=== PATIENT | male | born 1965 | race Caucasian/White ===

== ENCOUNTER 2016-11-27 17:02 | Inpatient (IN) | payer OTHER ==
[~2016-11-27] VITALS: Ht 180.3 cm; Wt 72.7 kg
[~2016-11-27 17:02] MED LIST: LORT5TAB PO; PENI500T PO; Z.0.NO CURRENT MEDS
[2016-11-27 17:06] VITALS: BP 136/87; PULSE 84; RESP 16; TEMP 100.3; O2SAT 97
--- NOTE | 2016-11-27 17:21 | PD ---
HPI Chief Complaint: ENT Complaint Time Seen by Provider: 17:21 Travel History International Travel<30 days: No Contact w/Intl Traveler<30days: No Traveled to known affect area: No History of Present Illness HPI 51-year-old male presents to the ED for evaluation of 3 day history of right- sided throat pain. Sudden onset. Patient endorses fevers, chills, difficulties swallowing his own secretions, pain radiating into the right ear. He denies headache, dizziness, difficulties breathing, abdominal pain, nausea or vomiting. He endorses several dental caries on the right side but denies any dental pain. He's been treating with Tylenol with no improvement of his symptoms. [facility] Social History Alcohol Use: Yes (12 CANS DAILY) Tobacco Use: Yes (1 1/2PPD) Substance Use: Yes (MARIJUANA OCCASIONALLY) Allergies-Medications (Allergen,Severity, Reaction): Coded Allergies: No Known Allergies (Verified , 11/27/16) Reported Meds & Prescriptions Reported Meds & Active Scripts Active No Active Prescriptions or Reported Medications Physical Exam Narrative GENERAL: Well-nourished, well-developed nontoxic appearing white male in no acute distress. SKIN: Focused skin assessment warm/dry. HEAD: Normocephalic. EYES: No scleral icterus. No injection or drainage. DENTAL: No loose teeth. No malocclusion. Multiple dental caries without tenderness to palpation or signs of active infection. ENT: Pearly lawrence tympanic membranes without loss of landmarks bilaterally. Mucosa moist. Oropharynx with right-sided deep erythema, edema. Uvular deviation to the left. For the mouth is soft. Airway patent. NECK: Supple, trachea midline. No JVD or lymphadenopathy. CARDIOVASCULAR: Regular rate and rhythm without murmurs, gallops, or rubs. RESPIRATORY: Breath sounds clear and equal bilaterally. No accessory muscle use. GASTROINTESTINAL: Abdomen soft, non-tender, nondistended. Active bowel sounds. MUSCULOSKELETAL: No cyanosis, or edema. Patient is noted to walk with a normal gait. BACK: Nontender without obvious deformity. No CVA tenderness. Data Data Last Documented VS Vital Signs Date Time Temp Pulse Resp B/P Pulse Ox O2 Delivery O2 Flow Rate FiO2 11/27/16 17:06 100.3 84 16 136/87 97 Orders Basic Metabolic Panel (Bmp) (11/27/16 17:18) Complete Blood Count With Diff (11/27/16 17:18) Blood Culture (11/27/16 17:18) Group A Rapid Strep Screen (11/27/16 17:18) Ct Soft Tiss Neck W Iv Cont (11/27/16 17:18) Iv Access Insert/Monitor (11/27/16 17:18) Dexamethasone Inj (Decadron Inj) (11/27/16 17:30) Clindamycin Inj (Cleocin Inj) (11/27/16 17:30) Sodium Chloride 0.9% Flush (Ns Flush) (11/27/16 17:30) Acetaminophen Inj (Ofirmev Inj) (11/27/16 17:30) Sodium Chlor 0.9% 1000 Ml Inj (Ns 1000 M (11/27/16 18:00) Iohexol 350 Inj (Omnipaque 350 Inj) (11/27/16 17:55) Ketorolac Inj (Toradol Inj) (11/27/16 18:15) Sodium Chlor 0.9% 1000 Ml Inj (Ns 1000 M (11/27/16 18:15) Strep Culture (Group A) (11/27/16 17:15) Admit Order (Ed Use Only) (11/27/16 19:14) Labs Laboratory Tests Test 11/27/16 17:10 White Blood Count 18.9 TH/MM3 Red Blood Count 4.64 MIL/MM3 Hemoglobin 14.8 GM/DL Hematocrit 44.3 % Mean Corpuscular Volume 95.5 FL Mean Corpuscular Hemoglobin 31.9 PG Mean Corpuscular Hemoglobin 33.5 % Concent Red Cell Distribution Width 11.6 % Platelet Count 329 TH/MM3 Mean Platelet Volume 7.4 FL Neutrophils (%) (Auto) 72.8 % Lymphocytes (%) (Auto) 10.6 % Monocytes (%) (Auto) 11.4 % Eosinophils (%) (Auto) 0.4 % Basophils (%) (Auto) 4.8 % Neutrophils # (Auto) 13.7 TH/MM3 Lymphocytes # (Auto) 2.0 TH/MM3 Monocytes # (Auto) 2.2 TH/MM3 Eosinophils # (Auto) 0.1 TH/MM3 Basophils # (Auto) 0.9 TH/MM3 CBC Comment AUTO DIFF Differential Total Cells 100 Counted Neutrophils % (Manual) 80 % Band Neutrophils % 7 % Lymphocytes % 7 % Monocytes % 5 % Neutrophils # (Manual) 16.6 TH/MM3 Metamyelocytes 1 % Differential Comment FINAL DIFF MANUAL Platelet Estimate NORMAL Platelet Morphology Comment NORMAL Red Cell Morphology Comment NORMAL Sodium Level 138 MEQ/L Potassium Level 3.6 MEQ/L Chloride Level 102 MEQ/L Carbon Dioxide Level 25.5 MEQ/L Anion Gap 11 MEQ/L Blood Urea Nitrogen 11 MG/DL Creatinine 0.74 MG/DL Estimat Glomerular Filtration 111 ML/MIN Rate Random Glucose 109 MG/DL Calcium Level 9.3 MG/DL [facility] Medical Decision Making Medical Screen Exam Complete: Yes Emergency Medical Condition: Yes Differential Diagnosis peritonsillar cellulitis versus peritonsillar abscess versus deep neck space infection versus retropharyngeal cellulitis versus Narrative Course 51-year-old male presents to the ED for evaluation of 3 day history of right- sided throat pain. Sudden onset. Patient endorses fevers, chills, difficulties swallowing his own secretions, pain radiating into the right ear. He denies headache, dizziness, difficulties breathing, abdominal pain, nausea or vomiting. He endorses several dental caries on the right side but denies any dental pain. Vitals reviewed. Patient is febrile, 100.3 on presentation. Physical exam reveals a nontoxic appearing white male in no acute distress. Multiple dental caries without tenderness to palpation or signs of active infection. Oropharynx with right-sided deep erythema, edema. Uvular deviation to the left. Floor the mouth is soft. Airway patent. Neck is supple. No lymphadenopathy. IV was established. Blood cultures were obtained. Patient was administered IV clindamycin, IV Decadron, IV acetaminophen, liter of normal saline. CBC reveals a leukocytosis of 18.9 with a left shift. CMP unremarkable. Rapid strep swab negative. Culture pending. CT reveals extensive masslike enlargement and swelling of the soft tissues in the posterior right oropharyngeal airway and extending into the hypopharynx. An area of low attenuation in the parapharyngeal space measures up to 2.7 x 2.1 cm. Findings most characteristic of a parapharyngeal tonsillar abscess. Cannot exclude neoplasm. Periapical abscesses around mandibular molars bilaterally. Mild enlarged right sided retromandibular lymph node. Findings per radiology read. Call placed to Dr. Ashley. He requested that the patient be admitted to the hospitalist, receive Rocephin 2 g twice a day. He requests Lortab elixir for pain. He requests that the patient NOT be administered Lovenox or Toradol considering that the patient may have surgery. Call placed to [facility]. I spoke with Dr. Cee who agrees to accept the patient to the medical service. Please see medicine and ENT notes for disposition. Sepsis Criteria SIRS Criteria (2 or more): WBC > 94713, < 4000 or > 10% bands Diagnosis Primary Impression: Peritonsillar abscess Scripts No Active Prescriptions or Reported Meds Christi Perdue Nov 27, 2016 17:21
[2016-11-27] MEDS ORDERED: SODIUM CHLORIDE 0.9% FLUSH 10 ML FLUSH IVF PRN (17:30)
[2016-11-27] MEDS ORDERED: CLINDAMYCIN INJ 900 MG in SODIUM CHLORIDE 0.9% INJ 100 ML IV ONE (17:30)
[2016-11-27] MEDS ORDERED: ACETAMINOPHEN 1000 MG/100 ML VIAL IV ONE (17:30)
[2016-11-27] MEDS ORDERED: DEXAMETHASONE SOD PHOS 4 MG/ML VIAL IV ONE (17:30)
[2016-11-27 17:40] LABS: AUTOMATED NEUTROPHIL # 13.7 TH/MM3 (1.8-7.7); BASOPHIL # 0.9 TH/MM3 (0-0.2); BASOPHIL % 4.8 % (0.0-2.0); EOSINOPHIL # 0.1 TH/MM3 (0-0.4); EOSINOPHIL % 0.4 % (0.0-4.0); HEMATOCRIT 44.3 % (39.0-51.0); LYMPH % 10.6 % (9.0-44.0); MEAN CELL VOLUME 95.5 FL (80.0-100.0); MEAN CORPUSCULAR HEMOGLOBIN 31.9 PG (27.0-34.0); MEAN CORPUSCULAR HGB CONC 33.5 % (32.0-36.0); MONO % 11.4 % (0.0-8.0); NEUT % 72.8 % (16.0-70.0); PLATELET COUNT 329 TH/MM3 (150-450); RED BLOOD COUNT 4.64 MIL/MM3 (4.50-5.90); RED CELL DISTRIBUTION WIDTH 11.6 % (11.6-17.2); WHITE BLOOD COUNT 18.9 TH/MM3 (4.0-11.0)
[2016-11-27 17:48] LABS: POTASSIUM 3.6 MEQ/L (3.5-5.1)
[2016-11-27 17:51] LABS: BICARBONATE 25.5 MEQ/L (21.0-32.0)
[2016-11-27 17:53] LABS: HEMO FLAGS AUTO DIFF
[2016-11-27] MEDS ORDERED: IOHEXOL 350 MG/ML 10 ML VIAL (for RAD DIAG) IV ONE (17:55)
[2016-11-27] MEDS ORDERED: SODIUM CHLOR 0.9% 1000 ML INJ 1,000 ML IV ONE ×2 (18:00→18:15)
[2016-11-27 18:15] LABS: BANDS 7 % (0-6); METAMYELOCYTES 1 % (0-1); NEUTROPHIL # MANUAL DIFF 16.6 TH/MM3 (1.8-7.7); POLYS (SEG NEUTROPHILS) 80 % (16-70); WBC DIFF SAMPLE 100
[2016-11-27] MEDS ORDERED: KETOROLAC TROMETHAMINE 30 MG/ML (IVP) VIAL IV PUSH ONE (18:15)
[2016-11-27 18:16] LABS: PLATELET ESTIMATE SMEAR NORMAL (NORMAL); PLATELET MORPHOLOGY NORMAL (NORMAL); SCAN/DIFF FINAL DIFF MANUAL
--- NOTE | 2016-11-27 18:21 | RADHPO ---
EXAM DATE/TIME: 11/27/2016 17:35 [place] COMPARISON: No previous studies available for comparison. INDICATIONS : Right sided neck swelling with sore throat and uvular deviation. IV CONTRAST: 75 cc Omnipaque 350 (iohexol) IV RADIATION DOSE: 12.18 CTDIvol (mGy) MEDICAL HISTORY : None SURGICAL HISTORY : None. ENCOUNTER: Initial ACUITY: 3 days PAIN SCALE: 7/10 LOCATION: Right neck TECHNIQUE: Volumetric scanning of the neck was performed. Using automated exposure control and adjustment of th e mA and/or kV according to patient size, radiation dose was kept as low as reasonably achievable to obtain optimal diagnostic quality images. FINDINGS: There is masslike enlargement and swelling in the posterior right oropharynx extending into the hypop harynx. Soft tissue swelling extends to the level of the glottis with partial effacement of the poste rior oropharyngeal and hypopharyngeal airway. There is some deviation of the epiglottis to the left a nd partial effacement of the vallecula. Within the masslike enlargement there is an area of low atten uation measuring up to 2.7 x 2.1 cm. This could represent an area of necrosis or abscess. There is a mildly prominent right retromandibular lymph node measuring up to about 1.3 cm. Submandibu lar lymph nodes are seen but not pathologically enlarged. Lung apices are clear. There is periapical lucency around the mandibular molars bilaterally suggestive of periapical abscess. CONCLUSION: 1. Extensive masslike enlargement and swelling of the soft tissues in the posterior right oropharynge al airway and extending into the hypopharynx. An area of low attenuation in the parapharyngeal space measures up to 2.7 x 2.1 cm. Finding most characteristic of a parapharyngeal/tonsillar abscess. Canno t exclude neoplasm. 2. Periapical abscesses around mandibular molars bilaterally. 3. Mildly enlarged right sided retromandibular lymph node. Cesar Beard MD on November 27, 2016 at 18:11 Board Certified Radiologist. This report was verified electronically.
[2016-11-27] MEDS ORDERED: ACETAMINOPHEN 325 MG/10.15 ML UDC PO PRN (19:15)
[2016-11-27] MEDS ORDERED: ONDANSETRON HCL 4 MG/2 ML VIAL IV PUSH PRN (19:15)
[2016-11-27 19:34] VITALS: BP 131/67; PULSE 86; RESP 20; O2SAT 97
[2016-11-27 20:50] VITALS: BP 129/79; PULSE 72; RESP 18; TEMP 98; O2SAT 96
[2016-11-27] MEDS: SODIUM CHLOR 0.9% 1000 ML INJ 1,000 ML IV SCH (21:15)
[2016-11-27] MEDS: AMPICILLIN-SULBACTAM INJ 3 GM in SODIUM CHLORIDE 0.9% INJ 100 ML IV SCH (22:29)
[2016-11-28] VITALS: BP 128/83; PULSE 67; RESP 18; TEMP 97.6; O2SAT 97
[2016-11-28] MEDS: AMPICILLIN-SULBACTAM INJ 3 GM in SODIUM CHLORIDE 0.9% INJ 100 ML IV SCH ×4 (02:16→21:56)
[2016-11-28] MEDS: SODIUM CHLOR 0.9% 1000 ML INJ 1,000 ML IV SCH ×2 (05:15→21:59)
[2016-11-28 06:27] LABS: AUTOMATED NEUTROPHIL # 10.7 TH/MM3 (1.8-7.7); BASOPHIL # 0.4 TH/MM3 (0-0.2); BASOPHIL % 2.9 % (0.0-2.0); EOSINOPHIL % 0.1 % (0.0-4.0); HEMATOCRIT 40.7 % (39.0-51.0); LYMPH % 8.9 % (9.0-44.0); LYMPHOCYTE # 1.2 TH/MM3 (1.0-4.8); MEAN CELL VOLUME 95.1 FL (80.0-100.0); MEAN CORPUSCULAR HEMOGLOBIN 32.1 PG (27.0-34.0); MEAN CORPUSCULAR HGB CONC 33.7 % (32.0-36.0); MONO % 5.9 % (0.0-8.0); NEUT % 82.2 % (16.0-70.0); PLATELET COUNT 290 TH/MM3 (150-450); RED BLOOD COUNT 4.28 MIL/MM3 (4.50-5.90); RED CELL DISTRIBUTION WIDTH 11.5 % (11.6-17.2); WHITE BLOOD COUNT 13.1 TH/MM3 (4.0-11.0)
[2016-11-28 06:30] LABS: HEMO FLAGS AUTO DIFF
[2016-11-28 07:25] LABS: SCAN/DIFF AUTO DIFF CONFIRMED
[2016-11-28 08:36] VITALS: BP 140/85; PULSE 64; RESP 15; TEMP 96.3; O2SAT 98
[2016-11-28 08:38] VITALS: BP 140/85; PULSE 64; RESP 15; TEMP 96.3; O2SAT 98
[2016-11-28] MEDS: ACETAMINOPHEN 325MG/HYDROcodone 7.5MG/15ML UDC PO PRN ×2 (13:38→21:55)
[2016-11-28 14:13] VITALS: BP 144/83; PULSE 59; RESP 16; TEMP 96.8; O2SAT 98
--- NOTE | 2016-11-28 16:12 | HHI.HP ---
[facility] No Primary Care Physician Admission Diagnosis right peritonsillar abscess Diagnoses: (1) Peritonsillar abscess Diagnosis: Principal (2) Leukocytosis Diagnosis: Principal Chief Complaint: Painful throat, difficulty swallowing Travel History International Travel<30 Days: No Contact w/Intl Traveler <30 Da: No Traveled to Known Affected Are: No History of Present Illness 51-year-old male with no significant medical history presents with complaint of pain in his throat and difficulty swallowing. He states he was in a lot of pain starting Friday and swelling also started at that time. He states he has pain and difficulty with swallowing. He additionally states his right ear hurts constantly describing it as sharp and states it is worst when he hears sharp pitches. He denies any hearing loss. He admits to subjective fevers and sweats on Friday night. He states he started taking leftover antibiotics, amoxicillin that he had at home. States he had a headache which also started on Friday. He took Advil. He states it is gone now. He states it started going away after he started the antibiotics at home. He has not had any recent dental problems. Denies any nausea or vomiting. States he has had dry cough related to smoking but is not significant. Denies weight loss. Denies any sick contacts. Review of Systems Except as stated in HPI: all other systems reviewed are Neg Past Family Social History Past Medical History No medical problems Past Surgical History No surgeries. Reported Medications None Allergies: Coded Allergies: No Known Allergies (Verified , 11/27/16) Family History Mother: Thyroid disease Father: possibly of a rattlesnake bite Social History Patient drinks 8-12 beers daily. Smokes 1.5 packs per day of cigarettes. He has smoked for 25-30 years. Denies illicit drug use. Physical Exam Vital Signs Vital Signs Date Time Temp Pulse Resp B/P Pulse Ox O2 Delivery O2 Flow Rate FiO2 11/28/16 14:13 96.8 59 16 144/83 98 11/28/16 08:38 96.3 64 15 140/85 98 11/28/16 08:36 96.3 64 15 140/85 98 11/28/16 00:00 97.6 67 18 128/83 97 11/27/16 20:50 98.0 72 18 129/79 96 11/27/16 19:34 86 20 131/67 97 Room Air 11/27/16 17:06 100.3 84 16 136/87 97 Physical Exam GENERAL: This is a well-nourished, well-developed patient, in no apparent distress. SKIN: No rashes, ecchymoses or lesions. Warm and dry. HEAD: Atraumatic. Normocephalic. EYES: Pupils equal round and reactive. Extraocular motions intact. No scleral icterus. No injection or drainage. ENT: Bilateral TMs normal. No pain with right ear tug. Patient's voice is slightly hoarse but not muffled. Uvular deviation. Fullness in the right posterior pharynx. NECK: Trachea midline. No carotid bruits. CARDIOVASCULAR: Regular rate and rhythm without murmurs, gallops, or rubs. RESPIRATORY: Clear to auscultation. Breath sounds equal bilaterally. No wheezes , rales, or rhonchi. GASTROINTESTINAL: Normoactive bowel sounds. Abdomen soft, non-tender, nondistended. MUSCULOSKELETAL: No lower extremity edema bilaterally. NEUROLOGICAL: Awake and alert. Motor grossly within normal limits. Five out of 5 muscle strength in bilateral arms and legs. Normal speech. Laboratory Laboratory Tests Test 11/27/16 11/28/16 17:10 06:12 White Blood Count 18.9 13.1 Red Blood Count 4.64 4.28 Hemoglobin 14.8 13.7 Hematocrit 44.3 40.7 Mean Corpuscular Volume 95.5 95.1 Mean Corpuscular Hemoglobin 31.9 32.1 Mean Corpuscular Hemoglobin 33.5 33.7 Concent Red Cell Distribution Width 11.6 11.5 Platelet Count 329 290 Mean Platelet Volume 7.4 7.5 Neutrophils (%) (Auto) 72.8 82.2 Lymphocytes (%) (Auto) 10.6 8.9 Monocytes (%) (Auto) 11.4 5.9 Eosinophils (%) (Auto) 0.4 0.1 Basophils (%) (Auto) 4.8 2.9 Neutrophils # (Auto) 13.7 10.7 Lymphocytes # (Auto) 2.0 1.2 Monocytes # (Auto) 2.2 0.8 Eosinophils # (Auto) 0.1 0.0 Basophils # (Auto) 0.9 0.4 CBC Comment AUTO DIFF AUTO DIFF Differential Total Cells 100 Counted Neutrophils % (Manual) 80 Band Neutrophils % 7 Lymphocytes % 7 Monocytes % 5 Neutrophils # (Manual) 16.6 Metamyelocytes 1 Differential Comment FINAL DIFF AUTO DIFF MANUAL CONFIRMED Platelet Estimate NORMAL Platelet Morphology Comment NORMAL Red Cell Morphology Comment NORMAL Sodium Level 138 Potassium Level 3.6 Chloride Level 102 Carbon Dioxide Level 25.5 Anion Gap 11 Blood Urea Nitrogen 11 Creatinine 0.74 Estimat Glomerular Filtration 111 Rate Random Glucose 109 Calcium Level 9.3 Date/Time Procedure Status Source Growth 11/27/16 17:15 Group A Streptococcus Screen - Preliminary Resulted Throat NO BETA STREPTOCOCCI ISOLATED AT 24 H... 11/27/16 17:15 Group A Streptococcus Screen (FRANKIE) - Final Complete Throat 11/27/16 17:15 Aerobic Blood Culture - Preliminary Resulted Blood Peripheral NO GROWTH IN 1 DAY 11/27/16 17:15 Anaerobic Blood Culture - Preliminary Resulted Blood Peripheral NO GROWTH IN 1 DAY Result Diagram: 11/28/16 0612 11/27/160 Imaging Last Impressions Neck CT 11/27/168 Signed Impressions: Service Date/Time: Sunday, November 27, 2016 17:35 - CONCLUSION: 1. Extensive masslike enlargement and swelling of the soft tissues in the posterior right oropharyngeal airway and extending into the hypopharynx. An area of low attenuation in the parapharyngeal space measures up to 2.7 x 2.1 cm. Finding most characteristic of a parapharyngeal/tonsillar abscess. Cannot exclude neoplasm. 2. Periapical abscesses around mandibular molars bilaterally. 3. Mildly enlarged right sided retromandibular lymph node. Cesar Beard MD Assessment and Plan Assessment and Plan 51-year-old male with: Peritonsillar abscess: CT with parapharyngeal/tonsillar abscess and periapical abscesses around mandibular molars bilaterally. Temp 100.3 on arrival. White blood cell count 18.9-->13.1. -ED spoke with Dr. Ashley -Continue Unasyn 3 g q 6 hours -Lortab elixir for pain -Keep NPO. IVF. -ENT consulted Alcohol abuse: Patient denies ever going into withdrawal or seizures. Last drink was Friday. No evidence of withdrawal at this time. DVT prevention: SCDs. Avoid anticoagulation due to possible surgery per ENT. Written by Madeline Coyle PA-C acting as scribe for Dr. Infante on 11/28/16 at 1600. All or portions of this note were transcribed by scribe [Madeline Coyle]. I, Dr. Yuriy Infante personally performed the history, physical exam, and medical decision making; and confirmed the accuracy of the information in the transcribed note. Authenticated by Dr. Yuriy Infante on 11/28/16 at 23:12. Physician Certification 2 Midnight Certification Type: Admission for Inpatient Services Order for Inpatient Services The services are ordered in accordance with Medicare regulations or non- Medicare payer requirements, as applicable. In the case of services not specified as inpatient-only, they are appropriately provided as inpatient services in accordance with the 2-midnight benchmark. Estimated LOS (days): 2 days is the estimated time the patient will need to remain in the hospital, assuming treatment plan goals are met and no additional complications. Post-Hospital Plan: Home Madeline Coyle Nov 28, 2016 16:12 Yuriy Infante MD Nov 28, 2016 23:12
[2016-11-28 18:19] VITALS: BP 154/91; PULSE 64; RESP 16; TEMP 98.4; O2SAT 98
[2016-11-28 20:00] VITALS: BP 142/89; PULSE 70; RESP 18; TEMP 97.9; O2SAT 99
[2016-11-29] VITALS: BP 142/81; PULSE 77; RESP 20; TEMP 99.5; O2SAT 98
[2016-11-29] MEDS: AMPICILLIN-SULBACTAM INJ 3 GM in SODIUM CHLORIDE 0.9% INJ 100 ML IV SCH ×2 (02:27→08:00)
[2016-11-29] MEDS: SODIUM CHLOR 0.9% 1000 ML INJ 1,000 ML IV SCH (02:27)
[2016-11-29] MEDS: ACETAMINOPHEN 325MG/HYDROcodone 7.5MG/15ML UDC PO PRN (03:52)
[2016-11-29] MEDS ORDERED: LACTATED RINGER'S 1000 ML IV PRN (06:00)
[2016-11-29 06:08] LABS: AUTOMATED NEUTROPHIL # 10.2 TH/MM3 (1.8-7.7); BASOPHIL # 0.3 TH/MM3 (0-0.2); BASOPHIL % 1.9 % (0.0-2.0); EOSINOPHIL % 0.2 % (0.0-4.0); HEMATOCRIT 36.8 % (39.0-51.0); LYMPH % 11.5 % (9.0-44.0); LYMPHOCYTE # 1.6 TH/MM3 (1.0-4.8); MEAN CELL VOLUME 95.7 FL (80.0-100.0); MEAN CORPUSCULAR HEMOGLOBIN 32.7 PG (27.0-34.0); MEAN CORPUSCULAR HGB CONC 34.1 % (32.0-36.0); MONO % 12.6 % (0.0-8.0); NEUT % 73.8 % (16.0-70.0); PLATELET COUNT 266 TH/MM3 (150-450); RED BLOOD COUNT 3.84 MIL/MM3 (4.50-5.90); RED CELL DISTRIBUTION WIDTH 11.2 % (11.6-17.2); WHITE BLOOD COUNT 13.9 TH/MM3 (4.0-11.0)
[2016-11-29 06:15] LABS: HEMO FLAGS AUTO DIFF
[2016-11-29 06:18] LABS: POTASSIUM 3.6 MEQ/L (3.5-5.1)
[2016-11-29 06:28] LABS: BICARBONATE 28.1 MEQ/L (21.0-32.0); MAGNESIUM 2.2 MG/DL (1.5-2.5)
[2016-11-29 06:31] LABS: PLATELET ESTIMATE SMEAR NORMAL (NORMAL); PLATELET MORPHOLOGY NORMAL (NORMAL); SCAN/DIFF AUTO DIFF CONFIRMED
[2016-11-29] MEDS ORDERED: OXYMETAZOLINE HCL 0.05% 15 ML NASAL SPRAY ONE (06:34)
[2016-11-29] MEDS ORDERED: MICROFIBRILLAR COLLAGEN HEMOSTAT 1 GM PKT ONE (06:35)
[2016-11-29] MEDS ORDERED: MIDAZOLAM HCL 2 MG/2 ML VIAL ONE (06:54)
[2016-11-29] MEDS ORDERED: ACETAMINOPHEN 1000 MG/100 ML VIAL IV ONE (06:54)
[2016-11-29] MEDS ORDERED: FAMOTIDINE 20 MG/2 ML VIAL ONE (06:54)
[2016-11-29] MEDS ORDERED: DEXAMETHASONE SOD PHOS 4 MG/ML VIAL ONE (06:54)
[2016-11-29] MEDS ORDERED: MORPHINE SULFATE 4 MG/ML INJ ONE (08:24)
[2016-11-29] MEDS ORDERED: LACTATED RINGER'S 1000 ML INJ 1,000 ML IV SCH (09:00)
[2016-11-29] MEDS ORDERED: ACETAMINOPHEN 325MG/HYDROcodone 7.5MG/15ML UDC PO PRN (09:00)
[2016-11-29] MEDS ORDERED: fentaNYL CITRATE 250 MCG/5 ML AMP ONE (09:12)
[2016-11-29] MEDS ORDERED: [UNRECOGNIZED DRUG - CODE] PO (10:12)
[2016-11-29] MEDS ORDERED: AMOXSUS PO (10:12)
[2016-11-29] MEDS ORDERED: HYDR1SOL3 PO (10:12)
[2016-11-29 11:00] VITALS: BP 146/82; PULSE 80; RESP 18; TEMP 98.6; O2SAT 96
[2016-11-29] MEDS ORDERED: POTASSIUM PHOSPHATE/SODIUM PHOSPHATE 250 MG TAB PO ONE (11:00)
[2016-11-29 11:49] VITALS: RESP 20
[2016-11-29] MEDS ORDERED: ONDANSETRON HCL 4 MG/2 ML VIAL IV PUSH ONE (12:00)
[2016-11-29] MEDS ORDERED: PROPOFOL 200 MG/20 ML AMP IV ONE ×2 (12:00)
[2016-11-29] MEDS ORDERED: NEOSTIGMINE 3 MG/3 ML SYR IV ONE (12:00)
--- NOTE | 2016-11-29 12:55 | MB ---
cc: SUZI EVANS M.D. DATE OF CONSULTATION: 11/28/2016 REASON FOR ENT CONSULTATION: Right peritonsillar abscess. REQUESTED BY: Dr. Yuriy Infante. HISTORY OF PRESENT ILLNESS: Bob Hatfield was a previously healthy 51-year-old man who presented to the emergency room on the afternoon of November 27 complaining of several days of progressive pain involving the right side of his throat and radiating into his ear. CT scan demonstrated 2 cm abscess in the right peritonsillar area extending into the right hypopharynx. He has been treated with IV Unasyn and clindamycin as well as Decadron for 24 hours and has persistent pain in the pharynx and also radiating into his ear. PAST MEDICAL HISTORY: Denies any significant medical history. PAST SURGICAL HISTORY: He has had dental extraction for dental abscess. MEDICATIONS: None prior to admission. ALLERGIES: Denies any allergies. SOCIAL HISTORY: He works as a [employer]anto[employer]. He smokes 1-1/2 packs of cigarettes per day. He states he drinks 10 to 12 beers per day. PHYSICAL EXAMINATION: VITAL SIGNS: Temperature is 96.3, pulse 64, respirations 15, blood pressure 140/80, pulse oximetry 98% on room air. HEAD: Normocephalic and atraumatic. Face is normal. ORAL CAVITY: Teeth are in somewhat poor condition. Tongue and mandible normal. OROPHARYNX: There is severe edema and erythema of the right tonsil partially occluding the oropharyngeal airway. This is very tender to palpation. Fluctuance in the soft palate. NECK: No nodes or masses. Tenderness in the right submandibular triangle and below the angle of the mandible. EARS: Normal auricles, ear canals, tympanic membranes. Fiberoptic laryngoscopy showed patent nasal airway, nasopharynx is normal. The oropharyngeal airway is compromised approximately 50%. The hypopharynx and larynx appear normal. LABORATORY: White count at admission was 13.1. ASSESSMENT: Right peritonsillar abscess. PLAN: Discussed with the patient given his failure to improve after 24 hours of aggressive treatment we elected to proceed with surgery as soon as practical to drain the abscess and remove both tonsils. Reviewed the indications, technique, risks and benefits, expected postoperative course of the surgery. He expressed understanding and would like to proceed. He is scheduled for a 07:00 a.m. on November at the [facility] Operating Room. MD HELENE Carreno/NEHEMIAS /6:58 AM /12:36 PM
--- NOTE | 2016-11-29 13:41 | EKG ---
Date Performed: 11/29/2016 Time Performed: 05:39:16 PTAGE: 51 years EKG: Sinus bradycardia Normal ECG except for rate NO PREVIOUS TRACING DOCTOR: Jaren Barron Interpretating Date/Time 11/29/2016 13:37:26
--- NOTE | 2016-11-30 09:19 | HHI.DS ---
Discharge Summary Admission Date Nov 27, 2016 at 19:15 Discharge Date: Nov 29, 2016 Admitting Diagnosis right peritonsillar abscess (1) Peritonsillar abscess ICD Code: J36 Diagnosis: Principal (2) Leukocytosis ICD Code: D72.829 Diagnosis: Principal Procedures Tonsillectomy. Please see report Brief History - From Admission 51-year-old male with no significant medical history presents with complaint of pain in his throat and difficulty swallowing. He states he was in a lot of pain starting Friday and swelling also started at that time. He states he has pain and difficulty with swallowing. He additionally states his right ear hurts constantly describing it as sharp and states it is worst when he hears sharp pitches. He denies any hearing loss. He admits to subjective fevers and sweats on Friday night. He states he started taking leftover antibiotics, amoxicillin that he had at home. States he had a headache which also started on Friday. He took Advil. He states it is gone now. He states it started going away after he started the antibiotics at home. He has not had any recent dental problems. Denies any nausea or vomiting. States he has had dry cough related to smoking but is not significant. Denies weight loss. Denies any sick contacts. CBC/BMP: 11/29/16 0555 11/29/16 0555 Significant Findings Laboratory Tests Test 11/27/16 11/28/16 11/29/16 17:10 06:12 05:55 White Blood Count 18.9 TH/MM3 13.1 TH/MM3 13.9 TH/MM3 (4.0-11.0) (4.0-11.0) (4.0-11.0) Neutrophils (%) (Auto) 72.8 % 82.2 % 73.8 % (16.0-70.0) (16.0-70.0) (16.0-70.0) Monocytes (%) (Auto) 11.4 % 12.6 % (0.0-8.0) (0.0-8.0) Basophils (%) (Auto) 4.8 % (0.0-2.0) 2.9 % (0.0-2.0) Neutrophils # (Auto) 13.7 TH/MM3 10.7 TH/MM3 10.2 TH/MM3 (1.8-7.7) (1.8-7.7) (1.8-7.7) Monocytes # (Auto) 2.2 TH/MM3 1.8 TH/MM3 (0-0.9) (0-0.9) Basophils # (Auto) 0.9 TH/MM3 0.4 TH/MM3 0.3 TH/MM3 (0-0.2) (0-0.2) (0-0.2) Neutrophils % (Manual) 80 % (16-70) Band Neutrophils % 7 % (0-6) Lymphocytes % 7 % (9-44) Neutrophils # (Manual) 16.6 TH/MM3 (1.8-7.7) Random Glucose 109 MG/DL 117 MG/DL (74-106) (74-106) Red Blood Count 4.28 MIL/MM3 3.84 MIL/MM3 (4.50-5.90) (4.50-5.90) Red Cell Distribution Width 11.5 % 11.2 % (11.6-17.2) (11.6-17.2) Lymphocytes (%) (Auto) 8.9 % (9.0-44.0) Hemoglobin 12.6 GM/DL (13.0-17.0) Hematocrit 36.8 % (39.0-51.0) Chloride Level 110 MEQ/L (98-107) Calcium Level 8.1 MG/DL (8.5-10.1) Phosphorus Level 1.7 MG/DL (2.5-4.9) Albumin 2.7 GM/DL (3.4-5.0) Imaging Last Impressions Neck CT 11/27/16 0358 Signed Impressions: Service Date/Time: Sunday, November 27, 2016 17:35 - CONCLUSION: 1. Extensive masslike enlargement and swelling of the soft tissues in the posterior right oropharyngeal airway and extending into the hypopharynx. An area of low attenuation in the parapharyngeal space measures up to 2.7 x 2.1 cm. Finding most characteristic of a parapharyngeal/tonsillar abscess. Cannot exclude neoplasm. 2. Periapical abscesses around mandibular molars bilaterally. 3. Mildly enlarged right sided retromandibular lymph node. Cesar Beard MD PE at Discharge GENERAL: Sitting up in bed. Appears couple. SKIN: Warm and dry. HEAD: Normocephalic. EYES: No scleral icterus. No injection or drainage. NECK: Supple, trachea midline. No JVD. Post tonsillectomy. Protecting airway. Eating Popsicle. CARDIOVASCULAR: Regular rate and rhythm without murmurs, gallops, or rubs. RESPIRATORY: Breath sounds equal bilaterally. No accessory muscle use. GASTROINTESTINAL: Abdomen soft, non-tender, nondistended. MUSCULOSKELETAL: No cyanosis, or edema. BACK: Nontender without obvious deformity. No CVA tenderness. Hospital Course Patient was treated with broad-spectrum antibiotics with resolution of fevers, however no significant improvement in pain. ENT was consulted, and patient underwent tonsillectomy with improvement in pain. He was tolerating full liquid diet. Recommend patient drink ensure, he says he will buy a case. Follow-up with ENT, primary care as outpatient. Continue antibiotics to complete treatment course. For problem-based summary from [facility].: 51-year-old male with: Peritonsillar abscess: CT with parapharyngeal/tonsillar abscess and periapical abscesses around mandibular molars bilaterally. Temp 100.3 on arrival. White blood cell count 18.9-->13.1. -ED spoke with Dr. Ashley -Continue Unasyn 3 g q 6 hours -Lortab elixir for pain -Keep NPO. IVF. -ENT consulted Alcohol abuse: Patient denies ever going into withdrawal or seizures. Last drink was Friday. No evidence of withdrawal at this time. DVT prevention: SCDs. Avoid anticoagulation due to possible surgery per ENT. Pt Condition on Discharge: Good Discharge Disposition: Discharge Home Discharge Time: <= 30 minutes Discharge Instructions DIET: Follow Instructions for: As Tolerated, No Restrictions Speech Therapy-Diet Recommends: Other Additional Diet Instructions: Full liqwuid diet. ensure, ensure plus. no alcohol Activities you can perform: Regular-No Restrictions Follow up Referrals: Ear Nose Throat - 1 Week with Homer Short MD PCP Follow-up - 1 Week with Heavenly Wong MD New Medications: Amoxicillin-Clavulanate Liq (Augmentin Es-600 Liq) 600-42.9 Mg/5 Ml Susp 7.5 ML PO BID Not for adults, adolescents, or children >/= 40kg. Not interchangeable with 200 mg/5 mL or 400 mg/5 mL due to clavulanic acid. Infection Days 14 Ref 0 ML Hydrocodone-Acetaminophen Liq (Hydrocodone-Acetaminophen Liq) 7.5-325 Mg/15 Ml Soln 15 ML PO Q4-6H PRN PAIN SCALE 1 TO 10 #420 ML Yuriy Infante MD Nov 30, 2016 09:19
--- NOTE | 2016-12-09 08:47 | MP ---
cc: SUZI SHORT M.D. DATE OF SURGERY: 11/27/[address] Suzi Short. PREOPERATIVE DIAGNOSIS 1. Adenotonsillar hypertrophy. 2. Chronic tonsillitis. 3. Right peritonsillar abscess. POSTOPERATIVE DIAGNOSIS 1. Adenotonsillar hypertrophy. 2. Chronic tonsillitis. 3. Right peritonsillar abscess. OPERATION PERFORMED 1. I&D right peritonsillar abscess and tonsillectomy. INDICATIONS Indications are documented in the history and physical. DESCRIPTION OF OPERATION The patient was taken to OR #2 and placed in the supine position. Following induction of general anesthesia and intubation a shoulder roll, Fernandez head drape and a McIvor mouth gag were put in place. Inspection of the right oropharynx revealed there to be extreme edema and erythema of the right tonsil extending from the soft palate down to the hypopharynx. The left side was not infected, although the edema from the right side extended over to the left. The right tonsil was grasped superiorly with a curved Allis clamp and then using Bovie cautery along the curvature of the superior margin of the tonsil fossa, soft tissue was incised down to the tonsil capsule. This was dissected around the arch of the tonsil for approximately 1 cm inferiorly from this point using the Schnidt tonsil dissector to elevate the capsule from the tonsil fossa until the abscess cavity was entered. This was a large abscess approximately 10 mL, evacuated and this exposed the abscess cavity. The margins of the cavity were then followed using the Bovie cautery and the tonsil was removed from this portion of the tonsil fossa and inferiorly was removed from the fossa in a routine fashion until the tonsil was passed off the field. This left a large defect in the right oropharyngeal wall but did not violate the muscles. The wound was packed with tonsil sponge packs saturated in Oxymetazoline for a period of 5 minutes, was then removed and the wound was then packed with Avitene microfibrils. The stomach was evacuated of few ccs of bilious gastric contents using a #18 NG tube. It was elected not to remove the left tonsil. The mouth gag was then removed and the procedure was terminated. The patient was reversed from anesthesia and taken to recovery in good condition. There were no complications. Blood loss was 40 mL. MD HELENE Carreno/LEVI /8:10 AM 8:37 AM
== END 2016-11-29 13:07 | disposition home or self-care (01) | DRG 134 ==
LOC: PHEFT 17:02 → PHEDA 19:15 → UNDOADMOB 19:15 → PH3A 20:50
PROVIDERS: ADMIT Internal Medicine; ATTEND Internal Medicine
PROC: 0C9PXZZ Drainage of Tonsils, External Approach (ICD-10-PCS; principal; 2016-11-27)
PROC: 0CTPXZZ Resection of Tonsils, External Approach (ICD-10-PCS; 2016-11-27)
DX: J36 Peritonsillar abscess (principal); F10.10 Alcohol abuse, uncomplicated; F17.210 Nicotine dependence, cigarettes, uncomplicated; K04.7 Periapical abscess without sinus; J35.01 Chronic tonsillitis
CPT/HCPCS: 70491; 80048; 80069; 83735; 85007; 85025; 85027; 87040; 87081; 87880; 88300; 88304; 93005; 96365; 96375; J0131; J0295; J1100; J1885; J2250; J2270; J2405; J2710; J3010; J7030; J7120; Q9967